=== PATIENT | female | born 2005 | race Caucasian/White ===

== ENCOUNTER 2024-09-27 11:56 | Emergency (ER) | payer OTHER, SELFPAY ==
[2024-09-27 12:10] VITALS: BP 141/84
[2024-09-27 12:45] LABS: % Basophils 0.8 % (0-2); % Immature Granulocytes 0.2 % (0-0.5); % Lymphocytes 24.1 % (20.5-51.1); % Neutrophils 65.9 % (42.2-75.2); Absolute Basophils 0.1 10^3/uL (0-0.2); Absolute Eosinophils 0.1 10^3/uL (0-0.7); Absolute Lymphocytes 1.4 10^3/uL (1.2-3.4); Absolute Monocytes 0.5 10^3/uL (0.1-0.6); Absolute Neutrophils 3.9 10^3/uL (1.4-6.5); Hemoglobin 14.2 g/dL (12.0-16.0); Mean Corp Hgb Conc. 34.6 g/dL (33.0-37.0); Mean Corpuscular Hgb 30.7 pg (27.0-31.0); Mean Corpuscular Volume 88.7 fL (81.0-99.0); Mean Platelet Volume 12.1 fL (7.4-10.4); Nucleated Red Blood Cells % 0 %; Platelet Count 195 10^3/uL (130-400); Red Blood Cell Count 4.62 10^6/uL (4.20-5.40); Red Cell Dist. Width 12.1 % (11.5-14.5); White Blood Cell Count 5.9 10^3/uL (4.8-10.8)
[2024-09-27 13:00] LABS: ALT (SGPT) 24 U/L (0-35); AST (SGOT) 19 U/L (14-36); Albumin 4.8 g/dl (3.5-5.0); Alkaline Phosphatase 63 U/L (38-126); Blood Urea Nitrogen 7 mg/dl (7-17); Calcium 9.9 mg/dl (8.4-10.2); Carbon Dioxide 27 mmol/L (22-30); Chloride 110 mmol/L (98-107); Glucose 91 mg/dl (70-99); Potassium 4.4 mmol/L (3.5-5.1); Sodium 142 mmol/L (135-145); Total Protein 7.5 g/dl (6.3-8.2); eGFR > 60.00
--- NOTE | 2024-09-27 16:19 | ED.GENMED ---
History of Present Illness
General
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
Source: patient
Exam Limitations: none
Time Seen by Provider: 09/27/24 15:20
Nursing documentation reviewed up to this point in time: agreed with
History of Present Illness
History of Present Illness:
Patient to ED wt complaint of inability to urinate. States she has not urinated all day. SHe had a similar episode last week. Lasted 24 hours and then resolved. SHe had burning with urination at that time. SInce then she has been symptom
free. Denies fever/chills, n/v/d. No abdominal or back pain.
Past History
Past History
ED Past Medical History: None
ED Past Surgical History: Tonsilectomy
Social History
Tobacco: Non-smoker
Alcohol: None
Drug: None
Review of Systems
Review of Systems
Allergies reviewed?: Yes
All Other Systems: ROS reviewed and negative except as documented in HPI and ROS
Constitutional: Reports no symptoms
EENT: Reports no symptoms
Respiratory: Reports no symptoms
Cardiac: Reports no symptoms
ABD/GI: Reports no symptoms
: Reports difficulty voiding
Musculoskeletal: Reports no symptoms
Skin: Reports no symptoms
Neurological: Reports no symptoms
Psychiatric: Reports no symptoms
Phy Exam
General Physical Exam
General Presentation: well appearing and no apparent distress
General age: appears stated age
General Skin: warm and dry
General Habitus: normal
General Mental: alert
Pulmonary Exam
Pulmonary Exam: no respiratory distress and chest non tender
Gastrointestinal Exam
Gastrointestinal Exam: normal bowel sounds, non tender and soft
Genitourinary Exam Female
Exam Female: other (Straight cath = 900cc)
Musculoskeletal Exam
Musculoskeletal Exam: full ROM and neuro vasc intact
Skin Exam
Skin Exam: normal color, warm/dry and no rash
Psychiatric Exam
Psychiatric Exam: normal mood/affect
Course
Orders/Labs/Results
Orders:
Orders
09/27/24 12:26
CBC/With Diff [Complete Blood Count/With Diff] Urgent
CMP [Comprehensive Metabolic Panel] Urgent
HCG, Serum Qualitative Screen Urgent
Comment: ADD ON
09/27/24 15:20
Bladder Scan- Treatment ONCE
09/27/24 16:13
Urinalysis Reflex To Culture Urgent
Date Specimen was Collected: 09/27/24
Time Specimen was Collected: 12:17
Urine Microscopic Reflex Cult Urgent
09/27/24 16:16
CT Abd/pelvis W Iv Cont Urgent
Comment:
Reason For Exam: urinary retention
09/27/24 16:17
Add On- LAB Urgent
Tests Added?: hcg serum qualitative
09/27/24 19:06
Herpes Simplex Vir Subtype PCR [S] Urgent
Herpes Source: Plasma
Abnormal Lab Results
09/27/24 09/27/24
12:26 16:13
MPV 12.1 H fL
(7.4-10.4)
Chloride 110 H mmol/L
(98-107)
Urine Albumin (Reflex) 2+ A
(Neg - Trace)
09/27/24 12:26
09/27/24 12:26
Vital Signs
Initial and Last Documented VS:
Initial Vital Signs
Temp Pulse Resp BP Pulse Ox
98.4 F 92 18 141/84 99
09/27/24 12:10 09/27/24 12:10 09/27/24 12:10 09/27/24 12:10 09/27/24 12:10
Last Documented Vital Signs
Temp Pulse Resp BP Pulse Ox
98.4 F 77 18 121/80 100
09/27/24 12:10 09/27/24 18:51 09/27/24 18:51 09/27/24 18:51 09/27/24 18:51
*Radiology
Radiology exam reviewed: radiology read reviewed
*Pulse Oximetry
SaO2: 99
Oxygen Mode of Delivery: Room air
Patient hypoxic: no
*Critical Care Note
Total Time (30-74mins, 75-104mins- exclusive of procedures): Not Applicable
Update Note
Update Note:
Patient to ED with complaint of inability to pass urine. Last time she reports voiding was last PM. Bladder scan on arrival to ED withs 800+. Straight cath completed by RN for >900cc. No evidence ofUTI on UA. CT of abd/pelvis without evidence
of obstructions. No pylonephritis or hydronephritis. SHe is pain free. After straight cath she has been able to void on own. Case discussed with Dr. Barton who will follow up with her outpatient. He recommends HSV testing as this is a leading
cause of retention in females of this age. Serum HSGV PCR sent. She denies any rash to genitalia at any time. Reports she is not sexually active. Will discharge home and she will follow up with urology as planned. SHe will return to ED if no
urine output in the next 8-10 hours.
ED Attending Note
-
Portions of this chart may have been created with voice recognition software.� Occasional wrong word or��sound alike� substitutions may have occurred due to the inherent limitations of voice recognition software.
Discharge Plan
Departure
Patient Disposition: Home (Routine Discharge)
Date of Disposition: 09/27/24
Time of Disposition: 18:39
Patient with high blood pressure during this ER visit?: No
Condition: Good
Covid-19: Not Applicable
Discharge Problem:
Acute urinary retention
Instructions: Urinary Retention (DC)
Referrals:
Preet Barton MD [Active, Urology] - Call in 1-3 days for appt
NONE,* [Family Provider, Internal Medicine]
Interventions
Interventions:
*Risk Screen - Suicide Last Done: 09/27/24 12:10
*General Assessment Last Done: 09/27/24 12:10
*Neglect/Abuse Screening Last Done: 09/27/24 12:10
*ED COVID-19 Vaccine History Last Done: 09/27/24 12:10
*Nursing Disposition Last Done: 09/27/24 19:11
ED-Female Genitourinary Assessment Last Done: 09/27/24 15:36
Discharge Date and Time
Discharge Date/Time: 09/27/24 19:11
Print Language: OCCITAN
[2024-09-27 16:36] LABS: Urine Albumin 2+ (Neg - Trace); Urine Bilirubin Negative (Negative); Urine Character Clear (Clear); Urine Color Yellow; Urine Glucose Negative (Negative); Urine Ketone Negative (Negative); Urine Leukocyte Negative (Negative); Urine Nitrite Negative (Negative); Urine Occult Blood Negative (Negative); Urine Specific Gravity 1.015 (<1.030); Urine Urobilinogen Negative (Neg - 1+)
[2024-09-27 16:48] LABS: HCG, Serum Qualitative Screen Negative
[2024-09-27 16:52] LABS: Urine Red Blood Cell 0-2 /HPF (0-2); Urine Squamous Cell 0-2 /LPF (Few)
[2024-09-27 16:53] LABS: Urine White Cell 0-2 /HPF (0-5)
[2024-09-27 18:51] VITALS: BP 121/80
== END 2024-09-27 19:11 | disposition home or self-care (01) ==
LOC: EMR 11:56
PROVIDERS: Emergency Medicine; Nurse Practitioner; EMERGENCY PHYSICIAN Emergency Medicine
DX: R33.9 Retention of urine, unspecified (principal); R30.9 Painful micturition, unspecified
CPT/HCPCS: 99284; 51798; 51701; 74177; 80053; 81003; 81015; 84703; 85025; 87529; Q9967